=== PATIENT | female | born 2000 | race Hispanic/Latino ===

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

== ENCOUNTER 2019-02-09 10:22 | Emergency (ER) | payer OTHER, MEDICAID | END 2019-02-09 11:19 | disposition home or self-care (01) | LOC: EDH 10:22 | DX: O99.342 Other mental disorders complicating pregnancy, second trimester (principal); F41.0 Panic disorder [episodic paroxysmal anxiety]; O99.512 Diseases of the respiratory system complicating pregnancy, second trimester; J45.909 Unspecified asthma, uncomplicated; Z3A.20 20 weeks gestation of pregnancy ==

== ENCOUNTER 2019-04-07 19:40 | Emergency (ER) | payer OTHER, MEDICAID ==
[2019-04-07] MEDS ORDERED: ACETAMINOPHEN EXTRA STRENGTH 500 MG TABLET ONE (20:25)
== END 2019-04-07 22:24 | disposition home or self-care (01) ==
LOC: EDH 19:40
DX: O26.893 Other specified pregnancy related conditions, third trimester (principal); O99.513 Diseases of the respiratory system complicating pregnancy, third trimester; M94.0 Chondrocostal junction syndrome [Tietze]; J45.909 Unspecified asthma, uncomplicated; Z3A.28 28 weeks gestation of pregnancy
CPT/HCPCS: 81025; 87804; 93005

== ENCOUNTER 2019-06-06 13:10 | Observation (INO) | payer OTHER, MEDICAID ==
[~2019-06-06] VITALS: Ht 162.6 cm; Wt 72.1 kg
[2019-06-06] MEDS ORDERED: LACTATED RINGERS 1000ML 1,000 ML IV SCH (13:15)
== END 2019-06-06 17:06 | disposition home or self-care (01) ==
LOC: LDH 13:10
PROVIDERS: ADMIT Specialist; ATTEND Specialist
DX: Z34.93 Encounter for supervision of normal pregnancy, unspecified, third trimester (principal); Z3A.36 36 weeks gestation of pregnancy
CPT/HCPCS: 59025; 76819; G0378 ×5; J7120 ×2; 96360; 96361

== ENCOUNTER 2019-06-16 18:06 | Inpatient (IN) | payer OTHER, MEDICAID ==
[~2019-06-16] VITALS: Ht 162.6 cm; Wt 71.7 kg
[2019-06-16 19:15] LABS: HEMATOCRIT 36.9 % (36-48); MEAN CORPUSCULAR HGB CONC 33.9 g/dL (32.0-36.0); MEAN CORPUSCULAR VOLUME 85.6 fL (80-100); PLATELET COUNT (AUTO) 202 K/uL (130-400); RED BLOOD CELL COUNT(AUTO) 4.31 MIL/uL (4.00-5.50); RED CELL DISTRIBUTION WIDTH 13.1 % (11.0-15.5); WHITE BLOOD COUNT (AUTO) 8.6 K/uL (4.8-10.8)
[2019-06-16 19:36] VITALS: BP 133/74
[2019-06-16 19:45] LABS: APPEARANCE,URINE Clear (CLEAR); BILIRUBIN,URINE Negative (NEGATIVE); COLOR,URINE Yellow (YELLOW); GLUCOSE, URINE (UA) Negative (NEGATIVE); KETONES,URINE 15 mg/dL (NEGATIVE); LEUKOCYTE ESTERASE ,URINE Small (NEGATIVE); NITRATE,URINE Negative (NEGATIVE); OCCULT BLOOD,URINE Negative (NEGATIVE); PH,URINE 6.5 (5.0-8.0); PROTEIN,URINE Negative (NEGATIVE)
[2019-06-16] MEDS: MISOPROSTOL 25 MCG TABLET VG SCH (19:58)
[2019-06-16 20:06] LABS: BACTERIA,URINE Few /HPF (None Seen); RBC,URINE None Seen /HPF (0-1); SQUAMOUS EPITHELIAL CELL,UR 0-2 /HPF (0-2)
[2019-06-16] MEDS: LACTATED RINGERS 1000ML 1,000 ML IV PRN (22:49)
[2019-06-17] MEDS: MISOPROSTOL 25 MCG TABLET VG SCH ×2 (00:17→02:45)
[2019-06-17] MEDS ORDERED: OXYTOCIN-LR 20 UNITS/1000 ML 1,000 ML IV ONE (05:38)
[2019-06-17] MEDS: OXYTOCIN 10 USP UNITS/ML 20 UNIT in LACTATED RINGERS 1000ML 1,000 ML IV SCH (06:15)
[2019-06-17] MEDS ORDERED: LACTATED RINGERS 500 ML 500 ML IV PRN (08:00)
[2019-06-17] MEDS ORDERED: EPHEDRINE SULFATE 50 MG/ML AMPULE IVP PRN (08:00)
[2019-06-17] MEDS ORDERED: NALOXONE HCL 0.4 MG/1 ML ML IV PRN (08:00)
[2019-06-17] MEDS ORDERED: ROPIVACAINE 0.2% 100ML VIAL 100 ML EP SCH (08:00)
[2019-06-17] MEDS ORDERED: FENTANYL CITRATE PF 50 MCG/1 ML 2ML VIAL ONE (08:31)
[2019-06-17] MEDS ORDERED: LIDOCAINE HCL 2% 20ML ONE (14:11)
[2019-06-17] MEDS ORDERED: BENZOCAINE/LANOLIN/ALOE VERA 60 ML AEROSOL TP PRN (15:45)
[2019-06-17] MEDS ORDERED: WITCH HAZEL 1 PAD TP PRN (15:45)
[2019-06-17] MEDS ORDERED: ACETAMINOPHEN 325 MG TAB PO PRN (15:45)
[2019-06-17] MEDS ORDERED: ACETAMINOPHEN-CODEINE 300/30MG TAB PO PRN (15:45)
[2019-06-17] MEDS ORDERED: MEASLES/MUMPS/RUBELLA VACCINE, LIVE 0.5 ML/VIAL SQ PRN (15:45)
[2019-06-17] MEDS ORDERED: DIPH,PERTUSS(ACELL),TET VAC/PF 0.5 ML VIAL IM PRN (15:45)
[2019-06-17] MEDS ORDERED: LANOLIN 30GM OINTMENT TP PRN (15:45)
[2019-06-17] MEDS ORDERED: OXYTOCIN-LR 20 UNITS/1000 ML 1,000 ML IV SCH (15:45)
--- NOTE | 2019-06-17 17:30 | NUR ---
BATHROOM ASSISTED UP TO BATHROOM, STEADY GAIT OBSERVED. VOIDED 1000ML URINE. PERICARE GIVEN AND UNDERPAD CHANGED. ASSISTED TO BEDSIDE CHAIR.
[2019-06-17 20:26] VITALS: BP 140/81
[2019-06-17] MEDS: DOCUSATE SODIUM 100 MG CAP PO SCH (20:53)
--- NOTE | 2019-06-17 21:00 | NUR ---
MEDICATIONS COLACE 100 MG PO GIVEN INFORMED PT SHE IS RUBELLA IMMUNE. PT SIGN CONSENT FOR RUBELLA.
--- NOTE | 2019-06-17 21:48 | NUR ---
MEDICATIOM MMR GIVEN LEFT ARM SQ. INDICATIONS AND EFFECTS OF MEDICATION EXPLAINED TO PT VERBALLY AND WRITTEN.
--- NOTE | 2019-06-17 22:00 | NUR ---
FOB CALLED ME INTO PT ROOM. PT LEFT NIPPLE BLEEDING. CLEANED OFF WITH WARM TOWEL AND APPLIED LANOLIN. ADVISED MOM TO FEEL INFANT FROM RIGHT BREAST FOR NOW. INFORMED ELENA RN OF BLEEDING NIPPLE. ELENA WENT TO PT ROOM FOR PT BREAST ASSESSMENT.
--- NOTE | 2019-06-17 22:45 | NUR ---
NO ADVERSE REACTIONS FROM MMR INJECTION.
[2019-06-18] VITALS (7 sets, daily range): BP systolic 96–121; BP diastolic 62–88
--- NOTE | 2019-06-18 00:10 | NUR ---
DERMAPLAST SPRAY GIVEN TO PT. INSTRUCTIONS GIVEN VERBALLY. PT VERBALIZED UNDERSTANDING. COLD PACK APPLIED TO PERINEUM. RIGHT LABIAL SWELLING.
[2019-06-18 07:10] LABS: HEPATITIS Bs ANTIGEN SCREEN P Negative (Negative)
--- NOTE | 2019-06-18 07:10 | NUR ---
report given to anders zavaleta
[2019-06-18] MEDS: DOCUSATE SODIUM 100 MG CAP PO SCH ×2 (08:46→21:17)
[2019-06-18] MEDS: IBUPROFEN 600 MG TABLET PO PRN (08:46)
--- NOTE | 2019-06-18 10:29 | NUR ---
SPOKE WITH DR. GATES TO INFORM THAT PATIENT'S BABY WILL NOT BE DISCHARGED TODAY. PATIENT OKAY TO STAY WITH BABY.
[2019-06-18] MEDS: MISOPROSTOL 25 MCG TABLET VG SCH ×2 (10:45→22:45)
[2019-06-18] MEDS: LACTATED RINGERS 1000ML 1,000 ML IV PRN ×3 (10:52→11:39)
[2019-06-18] MEDS ORDERED: PNV1TABL17 PO (10:52)
[2019-06-18] MEDS: OXYTOCIN 10 USP UNITS/ML 20 UNIT in LACTATED RINGERS 1000ML 1,000 ML IV SCH ×2 (10:53→10:55)
[2019-06-19] MEDS: MISOPROSTOL 25 MCG TABLET VG SCH ×2 (02:45→06:45)
[2019-06-19 03:42] VITALS: BP 119/86
[2019-06-19 07:25] VITALS: BP 123/78
[2019-06-19] MEDS: IBUPROFEN 600 MG TABLET PO PRN (08:50)
[2019-06-19] MEDS: DOCUSATE SODIUM 100 MG CAP PO SCH (08:50)
--- NOTE | 2019-06-19 08:50 | NUR ---
verbal and written discharge instructions given, informed of the follow up appointment, all questions answered, informed to call the doctor for future concerns, pt voiced understanding to all things discussed. Addendum: 06/19/19 at 0942 by TROY TOTH RN Amended: Links added.
--- NOTE | 2019-06-19 10:55 | NUR ---
pt is dismissed in stable condition, brought to private car via wheelchair by roula Mackey pcp Addendum: 06/19/19 at 1157 by TROY TOTH RN Amended: Links added.
== END 2019-06-19 10:55 | disposition home or self-care (01) | DRG 807 ==
LOC: LDH 18:06 → OBSVTOIN 18:06 → WSH 06-17 17:02
PROVIDERS: ADMIT Specialist; ATTEND Specialist
PROC: 10D07Z6 Extraction of Products of Conception, Vacuum, Via Natural or Artificial Opening (ICD-10-PCS; principal; 2019-06-16)
PROC: 0W8NXZZ Division of Female Perineum, External Approach (ICD-10-PCS; 2019-06-16)
PROC: 3E0R3BZ Introduction of Anesthetic Agent into Spinal Canal, Percutaneous Approach (ICD-10-PCS; 2019-06-16)
PROC: 00HU33Z Insertion of Infusion Device into Spinal Canal, Percutaneous Approach (ICD-10-PCS; 2019-06-16)
PROC: 3E0234Z Introduction of Serum, Toxoid and Vaccine into Muscle, Percutaneous Approach (ICD-10-PCS; 2019-06-16)
PROC: 3E0134Z Introduction of Serum, Toxoid and Vaccine into Subcutaneous Tissue, Percutaneous Approach (ICD-10-PCS; 2019-06-16)
PROC: 10907ZC Drainage of Amniotic Fluid, Therapeutic from Products of Conception, Via Natural or Artificial Opening (ICD-10-PCS; 2019-06-16)
DX: O69.1XX0 Labor and delivery complicated by cord around neck, with compression, not applicable or unspecified (principal); Z37.0 Single live birth; Z3A.38 38 weeks gestation of pregnancy; Z23 Encounter for immunization
CPT/HCPCS: 36415; 81001; 85027; 86592; 86850; 86900; 86901; 87088; 87340; 90707; 90715; A4314; G0378; J2590; J3010; J3490; J7120